=== PATIENT | male | born 1965 | race Caucasian/White ===

== ENCOUNTER 2017-12-23 07:21 | Outpatient (CLI) ==
[2016-03-26 09:12] VITALS: BMI 24.4
--- NOTE | 2017-12-23 08:09 | US ---
EXAM: Right upper quadrant abdominal ultrasound 12/23/2017 HISTORY: Elevated liver enzymes COMPARISON: None. FINDINGS: The liver shows no focal abnormality. Antegrade portal flow. Upper normal-caliber pancreatic duct measuring three mm diameter. Gallbladder wall appears within normal limits measuring 2.8 mm thickness. No pericholecystic fluid. No gallstones. Right kidney measures up to 10.7 cm diameter. No hydronephrosis. Common bile duct 3 mm diameter. IMPRESSION: 1. No gallstones or pericholecystic fluid. 2. No evidence of biliary ductal dilatation. 3. Upper normal-caliber of the pancreatic duct.
== END 2017-12-23 07:22 | disposition home or self-care (01) ==
LOC: RAD 07:21
PROVIDERS: ATTEND Family Medicine
DX: R74.8 Abnormal levels of other serum enzymes (principal)

== ENCOUNTER 2017-12-25 08:50 | Outpatient (CLI) ==
[2016-03-26 09:12] VITALS: BMI 24.4
--- NOTE | 2017-12-25 09:35 | DI ---
EXAM: Lumbar spine five views, including oblique views HISTORY: Low back pain COMPARISON: None TECHNIQUE: Five views lumbar spine were performed FINDINGS: Sacroiliac joints intact. Sacral arcuate intact. Vertebral bodies normal height. No fra cture. No subluxation. Multilevel marginal osteophyte formation. Multilevel endplate degenerative change with Schmorl's node formation. Mild intervertebral space narrowing L3-L4. Multilevel facet a rthrosis. IMPRESSION: Chronic discogenic degenerative disease and facet arthrosis.
== END 2017-12-25 08:51 | disposition home or self-care (01) ==
LOC: RAD 08:50
PROVIDERS: ATTEND Family Medicine
DX: M54.5 Low back pain (principal); G89.29 Other chronic pain

== ENCOUNTER 2018-06-10 11:17 | Outpatient (CLI) ==
[2016-03-26 09:12] VITALS: BMI 24.4
--- NOTE | 2018-06-10 11:38 | DI ---
EXAM: Two views of the chest. History: Short of breath Comparison: Chest radiograph 03/06/2015 Findings: Heart size is borderline enlarged. Sternotomy wires. Bilateral interstitial lung infiltr ates. No appreciable pleural fluid and no pneumothorax. Artificial heart valve. No acute osseous a bnormalities. Impression: Bilateral interstitial lung infiltrates could represent edema or pneumonia.
--- NOTE | 2018-06-10 11:39 | DI ---
EXAM: Three views of the lumbar spine. History: Lower back pain. Comparison: Lumbar spine radiograph 12/25/2017 Findings: No acute fracture or subluxation of the lumbar spine. Atherosclerotic vascular calcificati ons. No significant interval change in the mild to moderate multilevel degenerative disc space narro wing with endplate sclerosis and a few small osteophytes. Impression: 1. No acute osseous abnormality of the lumbar spine. 2. No significant interval change in the mild to moderate degenerative disc disease
== END 2018-06-10 11:18 | disposition home or self-care (01) ==
LOC: LAB 11:17
PROVIDERS: ATTEND Emergency Medicine
DX: R06.02 Shortness of breath (principal); I25.10 Atherosclerotic heart disease of native coronary artery without angina pectoris; I10 Essential (primary) hypertension; M47.26 Other spondylosis with radiculopathy, lumbar region; R60.0 Localized edema; Z12.5 Encounter for screening for malignant neoplasm of prostate; Z95.4 Presence of other heart-valve replacement
CPT/HCPCS: 36415; 80053; 80061; 84443; 85025

== ENCOUNTER 2018-06-11 14:35 | Outpatient (CLI) ==
[2016-03-26 09:12] VITALS: BMI 24.4
== END 2018-06-11 14:36 | disposition home or self-care (01) ==
LOC: RHC-LAB 14:35
PROVIDERS: ATTEND Emergency Medicine
DX: Z51.81 Encounter for therapeutic drug level monitoring (principal); Z79.01 Long term (current) use of anticoagulants
CPT/HCPCS: 36415; 85610

== ENCOUNTER 2018-07-12 18:41 | Emergency (ER) ==
[2018-07-12 18:49] VITALS: BP 145/86; TEMP 97.9; BMI 24.1
[2018-07-12] MEDS ORDERED: LIDOCAINE HCL 1% SDV SUBCUT STA (19:12)
--- NOTE | 2018-07-12 19:14 | ED.PDOC ---
General ED Provider: Dr. NEHA JAMISON Chief Complaint: Finger Laceration Stated Complaint: while hooking his boat on to the [facility] somthing slipped and his left middle finger got crushed sustaining a laceration to it with some bleeding controlled with pressure. States he is still able to move his finger without weakness. Admits to drinking beer today. Time Seen by Physician: 19:12 Mode of Arrival: Walk-In Information Source: Patient Exam Limitations: No limitations Primary Care Provider: ELIZABETH ANGULO Nursing and Triage Documentation Reviewed and Agree: Yes Does patient meet sepsis criteria?: No System Inflammatory Response Syndrome: Not Applicable Sepsis Protocol: For patient's 13 years and over: Temp is 96.8 and below OR 101 and greater Pulse >90 BPM Resp >20/minute Acutely Altered Mental Status Are patient's symptoms suggestive of a new infection, such as: -Pneumonia -Skin, Soft Tissue -Endocarditis -UTI -Bone, Joint Infection -Implantable Device -Acute Abdominal Infection -Wound Infection -Meningitis -Blood Stream Catheter Infection -Unknown Skin Complaint Exam - Laceration/Abrasion/Hand Complaint/Exam Location of Injury: Left, Digit #3 Mechanism of Injury: Laceration, Blunt trauma Onset/Duration: 2 hours ago Symptoms Are: Still present Initial Severity: Severe Current Severity: Moderate Aggravating: Movement Alleviating: Compression Associated Signs and Symptoms: Denies: Fever, Chills, Erythema, Numbness, Tingling Related History: Reports: Right hand dominant Hand Picture: 1 - curved shapped 3 cm laceration. Full range of motion and sensation on the proximal and distal to the laceration Differential Diagnoses: Laceration Review of Systems - Review Of Systems Constitutional: Reports: No symptoms Eyes: Reports: No symptoms Ears, Nose, Mouth, Throat: Reports: No symptoms Respiratory: Reports: No symptoms Cardiac: Reports: No symptoms GI: Reports: No symptoms : Reports: No symptoms Musculoskeletal: Reports: No symptoms Skin: Reports: Other (finger laceration ) Neurological: Reports: No symptoms Endocrine: Reports: No symptoms Hematologic/Lymphatic: Reports: No symptoms All Other Systems: Reviewed and Negative Past Medical History - Past Medical History Previously Healthy: No Endocrine: Reports: None Cardiovascular: Reports: CAD, Hypertension Respiratory: Reports: None Hematological: Reports: None Gastrointestinal: Reports: None Genitourinary: Reports: None Neuro/Psych: Reports: None Musculoskeletal: Reports: None Cancer: Reports: None - Surgical History General Surgical History: Reports: None - Family History Family History: Reports: None - Social History Smoking Status: Current every day smoker, Heavy tobacco smoker Hx Substance Use: No Alcohol Screening: Heavy - Immunizations Tetanus Shot up to Date: No Physical Exam - Physical Exam Appearance: Well-appearing, Well-nourished Pain Distress: Mild Eyes: Conjunctiva clear ENT: Nose normal, Oropharynx normal Respiratory: Airway patent, Respirations nonlabored Musculoskeletal: Normal strength, ROM intact (proximal and distal to the injury ), No edema, No calf tenderness Skin: Warm, Dry, Normal color Neurological: Sensation intact, Motor intact, Cranial nerves intact, Alert, Oriented Psychiatric: Affect appropriate, Mood appropriate Interpretation - Radiology Interpretation Radiology Interpretation By: ED Physician Radiology Results: Negative Exam Interpreted: Other (Left middle finger ) Procedures - Laceration/Wound Repair Dorsal aspect of left middle finger at the PIP joint Wound Description: Irregular Wound Length (cm): 3 Wound Width: 0.2 Wound Depth: 0.3 Wound Explored: Clean Wound Irrigated: Yes Wound Prep: Hibiclens Anesthesia: Lidocaine Suture Size and Type: 4.0 Ethlone Number of Sutures: 11 (running ) Sling Applied?: No Progress: Tolerated well Critical Care Note - Critical Care Note Total Time (mins): 0 Course - Course Orders, Labs, Meds: Orders Category Date Time Status Diphth,Pertuss(Acell),Tet Vac [Boostrix] MEDS 07/12/18 19:36 Once 0.5 ml IM .ONCE ONE Lidocaine HCl/Pf [Lidocaine HCl 1% Sdv] MEDS 07/12/18 19:12 Discontinued 5 ml SUBCUT ONCE STA FINGER(S), LEFT MIN 2V Stat RADS 07/12/18 19:37 Ordered Medications Discontinued Medications Generic Name Dose Route Start Last Admin Trade Name Freq PRN Reason Stop Dose Admin Diphtheria/Pertussis/Tetanus Vacc 0.5 ml 07/12/18 19:36 Boostrix IM 07/12/18 19:37 .ONCE ONE Lidocaine HCl 5 ml 07/12/18 19:12 07/12/18 19:18 Lidocaine Hcl 1% Sdv SUBCUT 07/12/18 19:13 5 ml ONCE STA Administration Vital Signs: Temp Pulse Resp BP Pulse Ox 07/12/18 18:43 97.9 F 76 18 145/86 H 96 Departure - Departure Time of Disposition: 19:42 Disposition: HOME SELF-CARE Discharge Problem: Laceration of finger Instructions: Finger Laceration (ED) Condition: Fair Pt referred to PMD for follow-up: Yes IPMP verified?: No Additional Instructions: Follow up with ER or PCP to have sutures removed in 7-10 days. Reprot any signs of swelling or puss as it may indicate infection that would require debridement and antibiotics. Allergies/Adverse Reactions: Allergies No Known Allergies Allergy (Verified 03/26/16 09:06) Home Medications: Ambulatory Orders Aspirin [Adult Low Dose Aspirin EC] 81 mg PO DAILY 03/26/16 Atorvastatin Calcium 10 mg PO BEDTIME 03/26/16 Lisinopril [Zestril] 2.5 mg PO DAILY 03/26/16 Metoprolol Tartrate [Lopressor] 25 mg PO BID 03/26/16 Warfarin Sodium [Coumadin] 5 mg PO EVERY OTHER DAY 03/26/16 Disposition Discussed With: Patient, Family
[2018-07-12] MEDS ORDERED: BOOSTRIX IM ONE (19:36)
--- NOTE | 2018-07-12 22:25 | DI ---
Exam: Three-view left hand. Date: 07/12/2018. Comparison: None. HISTORY: Blunt trauma to the left third finger. FINDINGS: The soft tissues are within normal limits. The mineralization is normal. There is an unu nited ulnar styloid process with accessory ossicle present. An accessory sesamoid is also present al leslie the palmar surface of the distal third metacarpal. The bones of the hand are intact and no fract ure or dislocation is identified. Joint spaces are preserved. Impression: No acute osseous abnormality in the left hand.
== END 2018-07-12 20:13 | disposition home or self-care (01) ==
LOC: ED 18:41
DX: S61.213A Laceration without foreign body of left middle finger without damage to nail, initial encounter (principal); W23.0XXA Caught, crushed, jammed, or pinched between moving objects, initial encounter; F17.210 Nicotine dependence, cigarettes, uncomplicated
CPT/HCPCS: 90471; 90715; 99282